=== PATIENT | male | born 1950 | race Caucasian/White ===

== ENCOUNTER → 2023-01-14 | Outpatient (CLI) | payer OTHER | END | disposition home or self-care (01) | LOC: RAH 08:46 | PROVIDERS: ATTEND Family Medicine | DX: M75.101 Unspecified rotator cuff tear or rupture of right shoulder, not specified as traumatic (principal); M19.011 Primary osteoarthritis, right shoulder; M25.711 Osteophyte, right shoulder | CPT/HCPCS: 73221 ==

== ENCOUNTER 2023-07-01 09:00 | Day surgery (SDC) | payer OTHER ==
[2023-06-28 14:10] LABS: BASOPHILS # (AUTO) 0.07 K/uL (0.00-0.20); EOSINOPHILS # (AUTO) 0.36 K/uL (0.00-0.70); EOSINOPHILS % (AUTO) 5.1 % (0.0-8.0); HEMATOCRIT 44.7 % (42-54); IMMATURE GRANULOCYTE ABSOLUTE 0.02 K/uL (0-1); LYMPHOCYTES # (AUTO) 2.8 K/uL (1.0-4.8); LYMPHOCYTES % (AUTO) 39.1 % (21.0-51.0); MEAN CORPUSCULAR HGB CONC 33.8 g/dL (32.0-36.0); MEAN CORPUSCULAR VOLUME 100.7 fL (79-99); MONOCYTES # (AUTO) 0.6 K/uL (0.1-1.0); MONOCYTES % (AUTO) 8.6 % (3.0-13.0); NEUTROPHILS # (AUTO) 3.3 K/uL (1.8-7.7); NEUTROPHILS % (AUTO) 45.9 % (40.0-77.0); PLATELET COUNT (AUTO) 288 K/uL (130-400); RED BLOOD CELL COUNT(AUTO) 4.44 MIL/uL (4.50-6.20); RED CELL DISTRIBUTION WIDTH 11.9 % (11.0-15.5); WHITE BLOOD COUNT (AUTO) 7.1 K/uL (4.8-10.8)
[2023-06-28 14:26] LABS: CREATININE 0.8 mg/dL (0.5-1.3); POTASSIUM 4.8 mmol/L (3.5-5.1)
[2023-06-28 14:28] LABS: INR 0.96 (0.85-1.15); PROTHROMBIN TIME 11.4 SEC (9.6-11.6)
[2023-06-28 14:29] LABS: PARTIAL THROMBOPLASTIN TIME 32.5 SEC (26.3-35.5)
[2023-06-28 14:37] VITALS: BP 113/77; PULSE 74; RESP 18
[~2023-07-01] VITALS: Ht 175.3 cm; Wt 105.5 kg
[2023-07-01] VITALS (17 sets, daily range): BP systolic 104–121; BP diastolic 60–80; PULSE 55–72; RESP 14–16
[~2023-07-01 09:00] MED LIST: CEFAZOLIN SODIUM 2 GM VIAL ONE; CELE200 PO; CHLO4TAB32 PO; CHOL2000 PO; CYCL5TAB PO; DEXAMETHASONE SOD PHOSPHATE 10MG/ML 1ML VIAL ONE; DEXT15DR21 OP; FENTANYL CITRATE PF 50 MCG/1 ML 2ML VIAL ONE; FISH1CAP20 PO; GABA300C PO; GLYCOPYRROLATE 0.2 MG/ML 5 ML VIAL ONE; HYDR-4060 PO; LIDOCAINE PF 100MG/5ML (2%) SYRINGE 5ML ONE; LISI1TAB51 PO; MIDAZOLAM HCL 1 MG/ML 2ML VIAL ONE; MVI PO; NEOSTIGMINE METHYLSULFATE 1MG/ML IV ONE; ONDANSETRON 4MG INJ ONE; OXYM30SP27 NS; PROPOFOL 10 MG/ML 20ML VIAL IV ONE; ROCURONIUM BROMIDE 10MG/1ML 5ML VL ONE; SUCCINYLCHOLINE CHLORIDE 20 MG/ML 10 ML VIAL ONE
[2023-07-01] MEDS ORDERED: TRAM50TA4 PO (09:47)
[2023-07-01] MEDS: LACTATED RINGERS 1000ML 1,000 ML IV ONE (09:48)
[2023-07-01] MEDS: CEFAZOLIN SODIUM 2 GM VIAL IVPB ONE (11:13)
[2023-07-01] MEDS ORDERED: TRANEXAMIC ACID 1000MG/10ML ONE (12:07)
[2023-07-01] MEDS ORDERED: ROCURONIUM BROMIDE 10MG/1ML 5ML VL ONE (12:15)
[2023-07-01] MEDS ORDERED: FENTANYL CITRATE PF 50 MCG/1 ML 2ML VIAL ONE (12:16)
[2023-07-01] MEDS: TRANEXAMIC ACID 1000MG/10ML IV ONE (13:16)
[2023-07-01] MEDS ORDERED: SUGAMMADEX SODIUM 200 MG/2 ML VIAL IV ONE (13:27)
== END 2023-07-01 15:40 | disposition home or self-care (01) ==
LOC: DAH 09:00
PROVIDERS: ATTEND Student in an Organized Health Care Education/Training Program
DX: T84.028A Dislocation of other internal joint prosthesis, initial encounter (principal); M62.81 Muscle weakness (generalized); G47.33 Obstructive sleep apnea (adult) (pediatric); I10 Essential (primary) hypertension; E78.5 Hyperlipidemia, unspecified; M19.90 Unspecified osteoarthritis, unspecified site; Z79.01 Long term (current) use of anticoagulants; Z79.899 Other long term (current) drug therapy; Z98.890 Other specified postprocedural states; Y79.2 Prosthetic and other implants, materials and accessory orthopedic devices associated with adverse incidents
CPT/HCPCS: 80048; 85025; 85610; 85730; 36415; 93005; 64415; 23472; 73020; 73030; A4600; C1776; A4663; J7030; A4565; J7120; J3010 ×2; J3490 ×6; J1100; J0330; J2001; J2250; J2704; J2405; J2710; J0690 ×2; A6446; G0168; A4930; A6254; A5120; A4215; A4223; A4213; A4222; A4221